=== PATIENT | female | born 1960 | race Caucasian/White ===

== ENCOUNTER → 2017-01-21 | Outpatient (CLI) | payer BC ==
[~2017-01-21] MED LIST: None per pt
[2017-01-21 14:07] LABS: HEMATOCRIT 44.1 % (34.6-47.8); HEMOGLOBIN 14.7 g/dL (11.7-16.4)
[2017-01-21 14:09] LABS: BLOOD UREA NITROGEN 17 mg/dL (7-18)
== END | disposition home or self-care (01) ==
LOC: STAR 12:55
PROVIDERS: ATTEND Obstetrics & Gynecology Female Pelvic Medicine and Reconstructive Surgery
DX: N83.201 Unspecified ovarian cyst, right side (principal)
CPT/HCPCS: 36415; 71020; 80048; 85025; 93005

== ENCOUNTER 2017-02-03 12:52 | Day surgery (SDC) | payer BC ==
[2017-01-21 13:14] VITALS: BP 136/92
[~2017-02-03] VITALS: Ht 165.1 cm; Wt 97.8 kg
[~2017-02-03 12:52] MED LIST changes: +CEFAZOLIN 1,000 MG ONE; +DEXAMETHASONE 4 MG/ML, 1ML ONE; +ONDANSETRON 2MG/ML, 2ML ONE; +PROPOFOL 10 MG/ML, 20ML ONE
[2017-02-03] MEDS ORDERED: LACTATED RINGERS 1,000 ML IV SCH (13:24)
[2017-02-03] MEDS ORDERED: LIDOCAINE 1%, 2ML SQ PRN (13:30)
[2017-02-03] MEDS ORDERED: FENTANYL PF 250 MCG/5ML ONE (13:33)
[2017-02-03] MEDS ORDERED: MIDAZOLAM 1 MG/ML, 2ML ONE (13:33)
[2017-02-03] MEDS ORDERED: LIDOCAINE GEL 2%, 5ML ONE (13:34)
[2017-02-03] MEDS ORDERED: KETOROLAC 30 MG/1 ML ONE (13:35)
[2017-02-03] MEDS ORDERED: ROCURONIUM 10 MG/ML,10ML ONE (14:00)
[2017-02-03] MEDS ORDERED: SUCCINYLCHOLINE 20 MG/ML, 10ML ONE (14:00)
[2017-02-03] MEDS ORDERED: NEOSTIGMINE 1 MG/ML, 10ML ONE (14:00)
[2017-02-03] MEDS ORDERED: GLYCOPYRROLATE 0.2MG/1ML, 5ML ONE (14:00)
[2017-02-03] MEDS ORDERED: BUPIVACAINE/PF 0.25% INFIL ONE (14:27)
[2017-02-03] MEDS ORDERED: ACETAMINOPHEN 325 MG TABLET PO PRN (14:30)
[2017-02-03] MEDS ORDERED: MIDAZOLAM 1 MG/ML, 2ML IV PRN (14:30)
[2017-02-03] MEDS ORDERED: hydrALAzine 20 MG/ML, 1ML IV PRN (14:30)
[2017-02-03] MEDS ORDERED: DIAZEPAM 5 MG/ML, 2ML IVPush PRN (14:30)
[2017-02-03] MEDS ORDERED: METOCLOPRAMIDE 5 MG/ML, 2ML IV PRN (14:30)
[2017-02-03] MEDS ORDERED: LORazepam 2 MG/ML, 1ML IVPush PRN (14:30)
[2017-02-03] MEDS ORDERED: LABETALOL 5MG/ML, 20ML IV PRN (14:30)
[2017-02-03] MEDS ORDERED: ALBUTEROL/IPRATROPIUM 2.5MG/0.5MG, 3 ML NPPB PRN (14:30)
[2017-02-03] MEDS ORDERED: OXYcodone 5 MG/5 ML ORAL.SOL UDC PO PRN (14:30)
[2017-02-03] MEDS ORDERED: PROMETHAZINE 25 MG/ML, 1ML IV PRN (14:30)
[2017-02-03] MEDS ORDERED: MEPERIDINE/PF 25MG/0.5ML IVPush PRN (14:30)
[2017-02-03] MEDS ORDERED: HYDROmorphone 1 MG/ML, 1ML IV PRN (14:30)
[2017-02-03] MEDS ORDERED: ONDANSETRON 2MG/ML, 2ML IVPush PRN (14:30)
[2017-02-03] MEDS ORDERED: ACETAMINOPHEN 650 MG/20.3 ML UDC ONE (15:33)
[2017-02-03] MEDS ORDERED: OXYcodone 5 MG/5 ML ORAL.SOL UDC ONE (15:33)
[2017-02-03] MEDS ORDERED: FENTANYL PF 100 MCG/2ML ONE (15:33)
[2017-02-03] MEDS ORDERED: EPINEPHRINE 1 MG/ML, 1ML ONE (15:34)
[2017-02-03] MEDS ORDERED: BUPIVACAINE/PF 0.25% ONE (15:34)
[2017-02-03] MEDS: FENTANYL PF 100 MCG/2ML IV PRN ×2 (15:37→15:53)
== END 2017-02-03 18:10 ==
LOC: OUT 12:52
PROVIDERS: ATTEND Obstetrics & Gynecology Female Pelvic Medicine and Reconstructive Surgery
DX: N83.201 Unspecified ovarian cyst, right side (principal); L90.0 Lichen sclerosus et atrophicus; Z80.41 Family history of malignant neoplasm of ovary; Z98.51 Tubal ligation status; Z98.890 Other specified postprocedural states
CPT/HCPCS: 58661; 88305; J0171; J0330; J0690; J1100; J1885; J2250; J2405; J2704; J2710; J3010; J3490; J7120